=== PATIENT | male | born 1995 | race Caucasian/White ===

== ENCOUNTER 2019-06-26 16:46 | Emergency (ER) | payer OTHER, SELFPAY ==
[2019-06-26 16:50] VITALS: BP 134/76; PULSE 82; RESP 15; TEMP 36.8; O2SAT 97; BMI 30.5
--- NOTE | 2019-06-26 17:32 | ED_ITS ---
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 Has a history of PTSD. Is currently on sertraline for is anxiety. Here for evaluation of an anxiety attack He states that he is taking his medications. He does not know what caused his issues today. He is on light duty at work given the medications he is taking. He also has insomnia. Has a follow-up with the medical assistant tomorrow. [place] follow-up in 2 weeks. Related Data Home Medications Medication Instructions Recorded Confirmed baclofen 10 mg PO TID 06/26/19 diazepam 06/26/19 sertraline 200 mg PO DAILY 06/26/19 Previous Rx's Medication Instructions Recorded lorazepam [Ativan] 1 mg PO TID PRN #7 tab 06/26/19 Allergies Allergy/AdvReac Type Severity Reaction Status Date / Time No Known Drug Allergies Allergy Verified 06/26/19 16:49 Review of Systems Constitutional Constitutional: Denies headache(s) ENT Ears, Nose, Mouth, and Throat: Denies headache(s) Cardiovascular Cardiovascular: Denies chest pain and Denies dyspnea Respiratory Respiratory: Denies dyspnea Musculoskeletal Musculoskeletal: Denies myalgias and Denies arthralgias Integumentary/Breasts Skin/Breast: Denies rash Neurologic Neurologic: Denies headache(s) Hematologic/Lymphatic Hematologic/Lymphatic: Denies easy bleeding and Denies easy bruising Patient History Medical History Anxiety (Acute) Depression (Acute) Insomnia (Acute) Low back pain (Acute) PTSD (post-traumatic stress disorder) (Acute) Social History Smoking Status: Unknown if ever smoked Smoking Status: Unknown if ever smoked alcohol intake frequency: holidays/special occasions only Substance Use Type: does not use Exam Initial Vital Signs Initial Vital Signs: Vital Signs Temperature 98.2 F 06/26/19 16:50 Pulse Rate 82 06/26/19 16:50 Respiratory Rate 15 06/26/19 16:50 Blood Pressure 134/76 06/26/19 16:50 Pulse Oximetry 97 02/11/20 16:50 Const General: cooperative and comfortable Limitations: mental status not altered Resp Effort & Inspection: normal respiratory effort Cardio Rate: regular rate Skin Lesions: no lesions Rashes: no rashes Neuro General: alert and awake Cognition: normal cognition Speech: speech normal Extrem General: normal to inspection and capillary refill normal Psych Appearance: grossly normal, well kempt and not disheveled Mood: congruent mood Thought Process: normal Thought Content: normal and suicidality Course Orders Ordered: Discontinued Medications Lorazepam (Ativan) 1 mg PO NOW ONE Stop: 06/26/19 17:33 Vital Signs Vital signs: Vital Signs - 8 hr 06/26/19 16:50 Temperature 98.2 F Pulse Rate 82 Respiratory Rate 15 Blood Pressure 134/76 Pulse Oximetry 97 MDM - Anxiety MDM Narrative Medical decision making narrative: Alert oriented x3. No SI or HI. GCS 15. In my opinion as capacity make decisions. Has a follow-up with his medical department tomorrow. No indication for acute admission. He was given return precautions. Expressed understanding and agreement plan. Discharge Plan Departure Patient Disposition: Home Clinical Impression: Acute anxiety Instructions: Anxiety Disorders Activity Restrictions/Additional Instructions: Take all of your medications as directed. Keep all of your scheduled medical appointments return to the emergency department for any new or worsening symptoms Prescriptions: New lorazepam [Ativan] 1 mg tablet 1 mg PO TID PRN (Reason: anxiety) Qty: 7 RF: 0 No Action sertraline 100 mg tablet 200 mg PO DAILY RF: 0 baclofen 10 mg tablet 10 mg PO TID RF: 0 diazepam 5 mg tablet RF: 0 Stand Alone Forms: Work Release Note
[2019-06-26] MEDS: LORazepam 0.5 MG TABLET 1 MG PO (17:40)
[2019-06-26 18:11] VITALS: BP 138/73; PULSE 72; O2SAT 99
== END 2019-06-26 18:12 | disposition home or self-care (01) ==
PROVIDERS: Emergency Provider Emergency Medicine
DX: F41.9 Anxiety disorder, unspecified (principal)
CPT/HCPCS: 99283

== ENCOUNTER → 2019-09-14 13:11 | Outpatient (CLI) | payer OTHER, SELFPAY ==
[2019-09-15 04:19] LABS: COVID19 Sendout Not Detected (Not Detect)
== END ==
PROVIDERS: Visit Provider Physician Assistant
DX: Z11.59 Encounter for screening for other viral diseases (principal)
CPT/HCPCS: 87635

== ENCOUNTER 2019-10-08 23:16 | Emergency (ER) | payer OTHER, SELFPAY ==
[2019-10-08 23:56] VITALS: PULSE 72; RESP 18; TEMP 36.9; O2SAT 97; BMI 31.3
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
[2019-10-09 00:55] VITALS: BP 120/65; PULSE 70; RESP 18; TEMP 36.6; O2SAT 96
--- NOTE | 2019-10-09 01:00 | ED.BACK ---
HPI - Back Pain/Injury General Chief Complaint: Back Pain/Injury Stated Complaint: back pain/spasms right leg goes numb Time Seen by Provider: 10/09/19 00:26 Source: patient History of Present Illness HPI Narrative: 24-year-old gentleman with a history of recurrent low back pain and back muscle spasm with increasing pain over the last 24 hours. He recently had his medication changed from Valium to Flexeril to baclofen and he is finding the baclofen is not very effective in controlling his overall muscle spasm. He has a child at home and is been bending and lifting a bit more. Over the last 24 hours pain has gotten significantly worse and now has a radicular component down the right leg. He has no changes to bowel or bladder and no numbness to the perineum. He is not having difficulty walking. Related Data Home Medications Medication Instructions Recorded Confirmed baclofen 10 mg PO TID 06/26/19 diazepam 06/26/19 sertraline 200 mg PO DAILY 06/26/19 Previous Rx's Medication Instructions Recorded lorazepam [Ativan] 1 mg PO TID PRN #7 tab 06/26/19 dexamethasone [Decadron] 10 mg PO DAILY #5 tab 10/09/19 Allergies Allergy/AdvReac Type Severity Reaction Status Date / Time No Known Drug Allergies Allergy Verified 06/26/19 16:49 Review of Systems Review of Systems Narrative: Pertinent positive and negative findings as per HPI Remainder of review of systems is otherwise unremarkable for Constitutional: Fevers, chills, weakness ENT: No sore throat, neck pain, ear pain CV: Chest pain, palpitations, dyspnea on exertion Respiratory: Cough, wheeze, dyspnea GI: Nausea, vomiting, diarrhea, change in bowel habits, black or bloody stools : Dysuria, hematuria, flank pain Patient History Medical History Anxiety (Acute) Depression (Acute) Insomnia (Acute) Low back pain (Acute) PTSD (post-traumatic stress disorder) (Acute) Social History Smoking Status: Never smoker Smoking Status: Never smoker alcohol intake frequency: 0-2 drinks per day Substance Use Type: does not use Exam Narrative Exam Narrative: General: Alert appropriate in no acute distress Respiratory: Able to speak in full sentences, no obvious respiratory distress Skin: No obvious rashes, warm and dry Neurologic: Grossly intact no obvious asymmetries or abnormalities. 2+ patellar reflexes and ankle jerks bilaterally. No difficulty with straight leg raising on the right side(side of discomfort). Back: Significant paraspinous muscle spasm in the right L3-L4 area without rashes or point tenderness over transverse processes Psych, appropriate insight and affect, cooperative Initial Vital Signs Initial Vital Signs: Vital Signs Temperature 98.4 F 10/08/19 23:56 Pulse Rate 72 10/08/19 23:56 Respiratory Rate 18 10/08/19 23:56 Pulse Oximetry 97 10/08/19 23:56 Course Orders Ordered: Discontinued Medications Dexamethasone (Decadron) 10 mg PO NOW ONE Stop: 10/09/19 01:12 Last Admin: 10/09/19 01:23 Dose: 10 mg Documented by: OLIVER Ketorolac Tromethamine (Toradol) 30 mg IM NOW ONE Stop: 10/09/19 01:12 Last Admin: 10/09/19 01:25 Dose: 30 mg Documented by: OLIVER Oxycodone/Acetaminophen (Percocet 5/325) 1 tab PO NOW ONE Stop: 10/09/19 01:12 Last Admin: 10/09/19 01:24 Dose: 1 tab Documented by: OLIVER Oxycodone/Acetaminophen (Endocet 5/325 Prepack) 1 bottle MISC SEEINSTR ONE Stop: 10/09/19 01:12 Last Admin: 10/09/19 01:25 Dose: 1 bottle Documented by: OLIVER Vital Signs Vital signs: Vital Signs - 8 hr 10/08/19 23:56 10/09/19 00:55 Temperature 98.4 F 97.9 F Pulse Rate 72 70 Respiratory Rate 18 18 Blood Pressure [Left Arm] 120/65 Pulse Oximetry 97 96 [facility] - Back Pain/Injury Medical Records Attestation: I reviewed the patient's medical records. [facility] Narrative Medical decision making narrative: Acute exacerbation of chronic back pain with no radicular symptoms in the last 24 hours. No red flags for infection, abscess, cauda equina syndrome. Imaging is not felt to be necessary nor appropriate at this time. Pain is relieved with Toradol IM and a single Percocet. He is placed on Decadron for 3 days and instructed follow-up with his primary care physician. He is felt to be safe for home discharge at this time Discharge Plan Departure Patient Disposition: Home Clinical Impression: Strain of lumbar region Qualifiers: Encounter type: initial encounter Qualified Code(s): S39.012A - Strain of muscle, fascia and tendon of lower back, initial encounter Sciatica Qualifiers: Laterality: right Qualified Code(s): M54.31 - Sciatica, right side Discharge Date/Time: 10/09/19 01:47 Instructions: DI for Back Pain With Sciatica Activity Restrictions/Additional Instructions: Thank you for coming in today I am sorry you are having so much discomfort. In the emergency room, you are given a shot of Toradol to help with the acute pain. You were also given the your 1st dose of Decadron, a steroid to help reduce swelling and hopefully the radicular symptoms down the right leg. I have given you a prescription for 2 more days of Decadron. Using 400 mg of ibuprofen (2 [id number] pills) and 1 Tylenol every 6 hours can be very helpful in controlling pain. For severe pain you can try to ibuprofen with a single Percocet to help control the pain. Please follow-up with your primary care physician and continue working on getting in to pain management to help with the current pain in her back and down your leg. I hope you feel better quickly Prescriptions: New dexamethasone [Decadron] 4 mg tablet 10 mg PO DAILY Qty: 5 RF: 0 No Action sertraline 100 mg tablet 200 mg PO DAILY RF: 0 baclofen 10 mg tablet 10 mg PO TID RF: 0 diazepam 5 mg tablet RF: 0 lorazepam [Ativan] 1 mg tablet 1 mg PO TID PRN (Reason: anxiety) Qty: 7 RF: 0 Stand Alone Forms: Work Release Note
[2019-10-09] MEDS: dexAMETHasone 4 MG TABLET 10 MG PO (01:23)
[2019-10-09] MEDS: OXYCODONE/ACETAMINOPHEN 5/325 TABLET 1 TAB PO (01:24)
[2019-10-09] MEDS: KETOROLAC 60 MG/2 ML VIAL 30 MG IM (01:25)
[2019-10-09] MEDS: OXYCODONE/APAP 5/325 PREPACK 1 BOTTLE MISC (01:25)
== END 2019-10-09 01:47 | disposition home or self-care (01) ==
PROVIDERS: Emergency Provider Emergency Medicine
DX: S39.012A Strain of muscle, fascia and tendon of lower back, initial encounter (principal); M54.41 Lumbago with sciatica, right side; X50.9XXA Other and unspecified overexertion or strenuous movements or postures, initial encounter
CPT/HCPCS: 96372; 99283; J1885

== ENCOUNTER → 2019-11-21 07:36 | Outpatient (CLI) | payer OTHER, SELFPAY ==
--- NOTE | 2019-11-21 | DI.MRI.S_ITS ---
PROCEDURE: MR LUMBAR SPINE WO CON INDICATIONS: Anesthesia of skin TECHNIQUE: Noncontrast sagittal T1 spin echo and T2 fast echo, sagittal STIR, axial T1 and T2 fast spin echo through the lumbar spine. In cases with scoliosis, additional coronal T2 fast spin echo may be performed. COMPARISON: None. FINDINGS: Image quality: Excellent. Alignment and Curvature: There is normal bony alignment. Bone Marrow: Marrow is of normal overall signal. No acute vertebral body compression fractures. Spinal Cord: Normal position and appearance of the conus. Visualized cord demonstrates normal signal and size. Paraspinous Soft Tissues: No paravertebral masses. L1-L2: Normal appearance. L2-L3: Normal appearance. L3-L4: Normal appearance. L4-L5: Normal appearance. L5-S1: Normal appearance. IMPRESSION: No acute finding or significant degenerative changes. No spinal canal stenosis, neural foraminal stenosis, or focal nerve root impingement. Dictated by: Joseph Jarrett M.D. on 11/21/2019 at 8:33 Approved by: Joseph Jarrett M.D. on 11/21/2019 at 8:34
== END ==
PROVIDERS: Referring Provider Orthopaedic Surgery Orthopaedic Surgery of the Spine; Visit Provider Orthopaedic Surgery Orthopaedic Surgery of the Spine
DX: R20.0 Anesthesia of skin (principal); M62.838 Other muscle spasm; M54.9 Dorsalgia, unspecified
CPT/HCPCS: 72148

== ENCOUNTER 2019-12-10 19:45 | Emergency (ER) | payer OTHER, SELFPAY ==
[2019-12-10 19:51] VITALS: BP 140/79; PULSE 77; RESP 14; TEMP 36.9; O2SAT 99
[2019-12-10 20:35] LABS: Add Manual Diff / Slide Review NO; Basophils Absolute Auto 100 /uL (0-100); Basophils Percent Auto 0.7 % (0-2); Eosinophils Absolute Auto 200 /uL (0-450); Eosinophils Percent Auto 3.1 % (2-4); Hematocrit 41.8 % (41-53); Lymphocytes Absolute Auto 1900 /uL (1100-4500); Mean Corpuscular HGB Conc 33.6 % (30-36); Mean Corpuscular Hemoglobin 29.6 PG (26-34); Mean Corpuscular Volume 88.2 fL (80-100); Monocytes Absolute Auto 800 /uL (0-900); Monocytes Percent Auto 10.1 % (3-14); Neutrophils Absolute Auto 4800 /uL (1500-7000); Neutrophils Percent Auto 61.1 % (50-75); Platelet Count 298 X10^3/uL (150-400); Red Blood Cell Count 4.74 X10^6/uL (4.5-5.9); Red Cell Distribution Width 13.9 % (11.6-14.8); White Blood Cell Count 7.8 X10^3/uL (4.5-11.0)
[2019-12-10 20:50] LABS: Lactate (Lactic Acid) 0.7 mmol/L (0.7-2.1)
[2019-12-10] MEDS: CYCLOBENZAPRINE 10 MG TABLET PO (20:51)
[2019-12-10] MEDS: KETOROLAC 60 MG/2 ML VIAL 30 MG IM (20:51)
[2019-12-10] MEDS: ACETAMINOPHEN 325 MG TABLET 650 MG PO (20:51)
[2019-12-10 20:53] LABS: BUN Creatinine Ratio 14.8 (6-22); Blood Urea Nitrogen 16 mg/dL (9-20); C-Reactive Protein Quant 1.2 mg/dL (<1.0); Calcium 9.5 mg/dL (8.4-10.2); Carbon Dioxide 30 mmol/L (22-32); Chloride 103 mmol/L (98-107); Estimated Glomerular Filt Rate > 60.0 mL/min (>60); Glucose 93 mg/dL (70-100); HEMOLYSIS < 15 (0-50); Potassium 4.3 mmol/L (3.4-5.1); Sodium 137 mmol/L (137-145)
[2019-12-10] MEDS: LIDOCAINE PATCH 1 EACH ADH..PATCH 2 EACH TOP (20:53)
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
[2019-12-10 21:11] LABS: Erythrocyte Sedimentation Rate 11 MM/HR (0-15)
[2019-12-10 21:22] VITALS: BP 136/76; PULSE 85; RESP 18; O2SAT 96
== END 2019-12-10 21:28 | disposition home or self-care (01) ==
PROVIDERS: Emergency Provider Nurse Practitioner Family; PCP Student in an Organized Health Care Education/Training Program
DX: M54.31 Sciatica, right side (principal); M62.830 Muscle spasm of back
CPT/HCPCS: 36415; 80048; 83605; 85025; 85651; 86140; 96372; 99283; J1885

== ENCOUNTER → 2020-02-01 13:50 | Outpatient (CLI) | payer OTHER, SELFPAY ==
--- NOTE | 2020-02-01 | DI.MRI.S_ITS ---
PROCEDURE: MR LUMBAR SPINE WO CON INDICATIONS: Dorsalgia, unspecified TECHNIQUE: Noncontrast sagittal T1 spin echo and T2 fast echo, sagittal STIR, axial T1 and T2 fast spin echo through the lumbar spine. In cases with scoliosis, additional coronal T2 fast spin echo may be performed. COMPARISON: [facility], MR, MR CERVICAL SPINE WO CON, 02/01/2020, 14:04. [facility], MR, MR THORACIC SPINE WITHOUT CONTRAST, 10/18/2019, 13:52. [facility], MR, MR LUMBAR SPINE WO CON, 11/21/2019, 7:58. FINDINGS: Image quality: Excellent. Alignment and Curvature: There is normal bony alignment. Bone Marrow: Marrow is of normal overall signal. No acute vertebral body compression fractures. Spinal Cord: Conus medullaris terminates at the L1 level. Visualized cord demonstrates normal signal and size. Paraspinous Soft Tissues: No paravertebral masses. T12-L1: Normal appearance. L1-L2: Normal appearance. L2-L3: Normal appearance. L3-L4: No significant abnormality is seen. L4-L5: Level within normal limits. L5-S1: Normal appearance. IMPRESSION: No significant lumbar spine MRI abnormality can be seen. Stable from prior. Dictated by: Matt López M.D. on 02/01/2020 at 13:57 Approved by: Matt López M.D. on 02/01/2020 at 13:59
--- NOTE | 2020-02-01 | DI.MRI.S_ITS ---
PROCEDURE: MR CERVICAL SPINE WO CON INDICATIONS: Dorsalgia, unspecified TECHNIQUE: Noncontrast sagittal T1 spin echo and T2 fast spin echo, sagittal STIR, foraminal oblique sagittal T2 fast spin echo, and axial gradient echo or T2 fast spin echo through the cervical spine. COMPARISON: [facility], MR, MR THORACIC SPINE WITHOUT CONTRAST, 10/18/2019, 13:52. [facility], MR, MR LUMBAR SPINE WO CON, 02/01/2020, 14:19. [facility], MR, MR LUMBAR SPINE WO CON, 11/21/2019, 7:58. FINDINGS: Image quality: Diagnostic, with note made of motion artifact. Alignment and Curvature: There is normal bony alignment. Bone Marrow: Marrow demonstrates normal overall signal. Spinal Cord: Visualized spinal cord has normal size and signal. No cerebellar tonsillar herniation. Paraspinous Soft Tissues: No paravertebral masses. Prevertebral soft tissues are normal in thickness. C2-C3: No significant abnormality is seen. C3-C4: The disc height and disc signal are relatively well preserved. Minimal to mild disc osteophyte complex is seen. Mild to moderate facet hypertrophy is seen. No significant neural foraminal or central canal narrowing can be seen. C4-C5: The disc height and disc signal are relatively well preserved. Moderate generalized disc osteophyte complex is seen. There is moderate right-sided and mild left-sided facet hypertrophy seen. There is moderate bilateral neural foraminal narrowing seen. Minimal to mild central canal narrowing is seen. C5-C6: The disc height and disc signal are relatively well preserved. Moderate disc osteophyte complex is seen, which is eccentric to the left. There is a mild left lateral recess/left foraminal disc osteophyte protrusion seen. There is at least moderate left-sided and dddd-xo-petgdcsk right-sided neural foraminal narrowing seen. No significant central canal narrowing is seen. C6-C7: The disc height and disc signal are relatively well preserved. Mild to moderate disc osteophyte complex is seen, which is eccentric to the left. There is ipzs-yl-stmvuuax left-sided and mild right-sided neural foraminal narrowing seen. Minimal central canal narrowing is seen. C7-T1: Mild loss of disc height is seen. Loss of disc signal is seen. A mild degree of generalized disc osteophyte complex is seen. Moderate facet joint hypertrophy is seen. There is urkz-br-gbmpmnyo left-sided and minimal right-sided neural foraminal narrowing seen. The central canal is widely patent. IMPRESSION: Multiple levels of premature cervical spine degenerative change are seen, which are most prominent at C4-C5 and C5-C6. Dictated by: Matt López M.D. on 02/01/2020 at 13:50 Approved by: Matt López M.D. on 02/01/2020 at 13:55
== END ==
PROVIDERS: PCP Student in an Organized Health Care Education/Training Program; Referring Provider Student in an Organized Health Care Education/Training Program; Visit Provider Student in an Organized Health Care Education/Training Program
DX: M54.9 Dorsalgia, unspecified (principal); M47.812 Spondylosis without myelopathy or radiculopathy, cervical region
CPT/HCPCS: 72141; 72148

== ENCOUNTER → 2020-05-02 10:41 | Outpatient (CLI) | payer OTHER, SELFPAY ==
--- NOTE | 2020-05-02 | DI.RAD.S_ITS ---
PROCEDURE: XR THORACIC SPINE 2V INDICATIONS: Z00.00 TECHNIQUE: 3 views of the thoracic spine were acquired. COMPARISON: None. FINDINGS: Bones: No fractures or dislocations. No suspicious bony lesions. Twelve pairs of ribs are noted, and appear intact where visualized. Soft tissues: No paravertebral stripe thickening. IMPRESSION: Normal alignment, no trauma found. Dictated by: Luca Soliz M.D. on 05/02/2020 at 13:21 Approved by: Luca Soliz M.D. on 05/02/2020 at 13:22
--- NOTE | 2020-05-02 | DI.RAD.S_ITS ---
PROCEDURE: XR CHEST 2V INDICATIONS: Z00.00 TECHNIQUE: 2 views of the chest were acquired. COMPARISON: None. FINDINGS: Surgical changes and devices: None. Lungs and pleura: Lungs are clear. No pleural effusions or pneumothorax. Mediastinum: Mediastinal contours are normal. Heart size is normal. Bones and chest wall: No suspicious bony abnormalities. Soft tissues appear unremarkable. IMPRESSION: Normal for age. Dictated by: Luca Soliz M.D. on 05/02/2020 at 13:18 Approved by: Luca Soliz M.D. on 05/02/2020 at 13:19
--- NOTE | 2020-05-02 | DI.RAD.S_ITS ---
PROCEDURE: XR HAND LT MIN 3V INDICATIONS: z00.00 TECHNIQUE: 3 views of the hand(s) acquired. COMPARISON: None. FINDINGS: Bones: No fractures or dislocations. Carpal bones are normally aligned. No suspicious bony lesions. Soft tissues: No suspicious soft tissue calcifications. IMPRESSION: Normal for age, no trauma found. Dictated by: Luca Soliz M.D. on 05/02/2020 at 13:19 Approved by: Luca Soliz M.D. on 05/02/2020 at 13:21
--- NOTE | 2020-05-02 | DI.RAD.S_ITS ---
PROCEDURE: XR LUMBAR SPINE 2-3V INDICATIONS: z00.00 TECHNIQUE: 3 views of the lumbar spine were acquired. COMPARISON: None. FINDINGS: Bones: 5 hfr-cqf-cofbvwl vertebrae are present. There is normal bony alignment. No vertebral body compression fractures. No suspicious bony lesions. Soft tissues: Overlying bowel gas pattern is normal. No suspicious soft tissue calcifications. IMPRESSION: Normal for age, no significant degenerative disc disease or facet osteoarthritis is seen. No compression fracture found. Dictated by: Luca Soliz M.D. on 05/02/2020 at 13:21 Approved by: Luca Soliz M.D. on 05/02/2020 at 13:21
== END ==
PROVIDERS: PCP Student in an Organized Health Care Education/Training Program; Referring Provider Family Medicine; Visit Provider Family Medicine
DX: Z00.00 Encounter for general adult medical examination without abnormal findings (principal)
CPT/HCPCS: 71046; 72070; 72100; 73130

== ENCOUNTER 2020-06-18 10:10 | Emergency (ER) | payer OTHER, SELFPAY ==
[2020-06-18 10:16] VITALS: BP 139/73; PULSE 86; RESP 16; TEMP 36.1; O2SAT 98; BMI 31.3
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
[2020-06-18] MEDS: KETOROLAC 60 MG/2 ML VIAL 30 MG IM (10:41)
[2020-06-18] MEDS: LIDOCAINE PATCH 1 EACH ADH..PATCH TOP (10:41)
[2020-06-18] MEDS: CYCLOBENZAPRINE 10 MG TABLET PO (10:41)
[2020-06-18] MEDS: CODEINE/ACETAMINOPHEN 30/300 TABLET 1 TAB PO (11:48)
[2020-06-18] MEDS: predniSONE 20 MG TABLET 40 MG PO (11:48)
[2020-06-18 12:57] VITALS: BP 130/60; PULSE 79; RESP 18; O2SAT 100
== END 2020-06-18 13:09 | disposition home or self-care (01) ==
PROVIDERS: Emergency Provider Nurse Practitioner Family; PCP Student in an Organized Health Care Education/Training Program
DX: M54.5 Low back pain (principal); M54.6 Pain in thoracic spine
CPT/HCPCS: 96372; 99281; 99283; J1885

== ENCOUNTER 2021-04-08 15:40 | Emergency (ER) | payer OTHER, SELFPAY ==
[2021-04-08 16:15] VITALS: BP 122/82; PULSE 101; RESP 18; TEMP 36.1; O2SAT 99; BMI 31.6
[2021-04-08 17:25] LABS: Add Manual Diff / Slide Review NO; Basophils Absolute Auto 0 /uL (0-100); Basophils Percent Auto 0.4 % (0-2); Eosinophils Absolute Auto 100 /uL (0-450); Eosinophils Percent Auto 1.2 % (2-4); Hematocrit 45.1 % (41-53); Lymphocytes Absolute Auto 900 /uL (1100-4500); Lymphocytes Percent Auto 13.6 % (25-40); Mean Corpuscular HGB Conc 33.4 % (30-36); Mean Corpuscular Hemoglobin 29.5 PG (26-34); Mean Corpuscular Volume 88.3 fL (80-100); Monocytes Absolute Auto 800 /uL (0-900); Monocytes Percent Auto 12.4 % (3-14); Neutrophils Absolute Auto 4800 /uL (1500-7000); Neutrophils Percent Auto 72.4 % (50-75); Platelet Count 254 X10^3/uL (150-400); Red Cell Distribution Width 13.9 % (11.6-14.8); White Blood Cell Count 6.6 X10^3/uL (4.5-11.0)
[2021-04-08 18:22] LABS: Alanine Aminotransferase 92 IU/L (<50); Albumin 4.7 g/dL (3.5-5.0); Albumin Globulin Ratio 1.6 (1.0-2.8); Alkaline Phosphatase 79 U/L (38-126); Aspartate Aminotransferase 48 IU/L (17-59); BUN Creatinine Ratio 14.9 (6-22); Bilirubin Total 0.4 mg/dL (0.2-1.3); Blood Urea Nitrogen 14 mg/dL (9-20); Carbon Dioxide 28 mmol/L (22-32); Chloride 99 mmol/L (98-107); Estimated Glomerular Filt Rate > 60.0 mL/min (>60); Glucose 93 mg/dL (70-100); HEMOLYSIS 19 (0-50); Lipase 55 U/L (23-300); Potassium 4.5 mmol/L (3.4-5.1); Sodium 138 mmol/L (137-145); Total Protein 7.7 g/dL (6.3-8.2)
--- NOTE | 2021-04-08 19:12 | ED_ITS ---
HPI - Abdominal Pain <Addison Styles PA-C - Last Filed: 04/08/21 20:03> General Chief Complaint: Abdominal Pain Stated Complaint: gastro pains Time Seen by Provider: 04/08/21 18:48 Source: patient Mode of arrival: Ambulatory Limitations: no limitations History of Present Illness HPI narrative: Patient is a 26-year-old male presenting to the emergency department today for evaluation of abdominal pain began this morning. Patient states that his at home has experienced diarrhea for the past 2 days, and he notes that he began to experience diarrhea today as well. He notes that 2 days ago he experienced alternating sensations of the cotton cold. Of note, patient states that he e xperienced an episode of spontaneous diarrhea today with associated nausea and decreased appetite. Patient denies fever, chest pain, shortness of breath, cough, vomiting, dysuria, hematuria, hematochezia. Of note, patient states that he has been experiencing ?abnormal stools for approximately 1 month. No other concerns voiced at this time. Patient reports 1 episode of diarrhea today he explains that he took a dose of loperamide and has not experienced further episodes of diarrhea. Related Data Home Medications Medication Instructions Recorded Confirmed sertraline 100 mg tablet 200 mg PO DAILY 06/26/19 duloxetine 60 mg capsule,delayed mg PO 12/10/19 release gabapentin 300 mg capsule 600 mg 12/10/19 omeprazole 20 mg capsule,delayed 12/10/19 release Previous Rx's Medication Instructions Recorded cyclobenzaprine 10 mg tablet 10 mg PO BEDTIME PRN #7 tab 12/10/19 lidocaine 5 % topical patch 1 patch TOP DAILY PRN #30 each 12/10/19 acetaminophen 300 mg-codeine 30 mg 1 tab PO Q6H PRN #10 tab 06/18/20 tablet cyclobenzaprine 10 mg tablet 10 mg PO TID PRN #20 tab 06/18/20 ketorolac 10 mg tablet 10 mg PO TID PRN #15 tab 06/18/20 loperamide 2 mg tablet 2 mg PO QID PRN #30 tab 04/08/21 loperamide 2 mg tablet 2 mg PO QID PRN #30 tab 04/08/21 Allergies Allergy/AdvReac Type Severity Reaction Status Date / Time No Known Drug Allergies Allergy Verified 06/26/19 16:49 Review of Systems <Addison Styles PA-C - Last Filed: 04/08/21 20:03> Constitutional Constitutional: Denies chills, Denies fatigue, Denies fever(s), Denies frequent falls, Denies lethargy and Denies weakness ENT Ears, Nose, Mouth, and Throat: Denies change in voice, Denies dizziness, Denies neck pain, Denies sore throat and Denies throat swelling Cardiovascular Cardiovascular: Denies chest pain, Denies irregular heart rhythm, Denies lightheadedness, Denies palpitations, Denies dyspnea, Denies dyspnea on exertion and Denies orthopnea Respiratory Respiratory: Denies cough, Denies dyspnea, Denies dyspnea on exertion and Denies wheezing Gastrointestinal Gastrointestinal: Reports abdominal pain, Denies hematochezia, Reports change in bowel habits, Denies coffee ground emesis, Reports diarrhea, Reports nausea, Denies vomiting and Denies hematemesis Musculoskeletal Musculoskeletal: Denies neck pain Neurologic Neurologic: Denies dizziness, Denies frequent falls and Denies weakness Endocrine Endocrine: Denies fatigue and Denies palpitations Allergic/Immunologic Allergic/Immunologic: Denies urticaria, Denies throat swelling and Denies wheezing Patient History <Addison Styles PA-C - Last Filed: 04/08/21 20:03> Medical History (Updated 04/08/21 @ 19:29 by Addison Styles PA-C) Anxiety Depression Insomnia Low back pain PTSD (post-traumatic stress disorder) Social History Smoking Status: Never smoker Smoking Status: Never smoker alcohol intake frequency: 0-2 drinks per day Substance Use Type: does not use Exam <Addison Styles PA-C - Last Filed: 04/08/21 20:03> Narrative Exam Narrative: GENERAL: 26 year old patient appears stated age. Well-developed patient, in no acute distress. HEAD: Atraumatic. Normocephalic. EYES: Pupils equal round and reactive. Extraocular motions intact. No scleral icterus. No injection or drainage. ENT: Nose without bleeding, purulent drainage. Throat without erythema, tonsillar hypertrophy or exudate. Airway patent. NECK: Trachea midline. Non tender CARDIOVASCULAR: Regular rate and rhythm without murmurs, gallops, or rubs. RESPIRATORY: Clear to auscultation. Breath sounds equal bilaterally. No wheezes, rales, or rhonchi. GASTROINTESTINAL: Abdomen soft, nondistended. Tenderness to palpation a ppreciated throughout all quadrants of the abdomen, no masses appreciated. Negative McBurney's point. Negative psoas sign. EXTREMITIES: No edema or joint tenderness. BACK: Nontender without deformity or crepitance. No flank tenderness. NEURO: AOx3. SKIN: No rash or erythema of visible areas Initial Vital Signs Initial Vital Signs: Vital Signs Temperature 97.0 F L 04/08/21 16:15 Pulse Rate 101 H 04/08/21 16:15 Respiratory Rate 18 04/08/21 16:15 Blood Pressure 122/82 04/08/21 16:15 Pulse Oximetry 99 04/08/21 16:15 <DO Elijah Kramer Last Filed: 04/09/21 01:05> Initial Vital Signs Initial Vital Signs: Vital Signs Temperature 97.0 F L 04/08/21 16:15 Pulse Rate 101 H 04/08/21 16:15 Respiratory Rate 18 04/08/21 16:15 Blood Pressure 122/82 04/08/21 16:15 Pulse Oximetry 99 04/08/21 16:15 Course <Addison Styles PA-C - Last Filed: 04/08/21 20:03> Course Course Narrative: Lipase, CBC, CMP, EKG, urine dipstick ordered. Orders Ordered: ED Orders 04/08/21 16:56 Complete Blood Count AUTO DIFF Stat Comprehensive Metabolic Panel Stat Lipase Stat Vital Signs Vital signs: Vital Signs - 8 hr 04/08/21 19:36 Pulse Rate 89 Respiratory Rate 16 Blood Pressure 129/75 Pulse Oximetry 99 <DO Elijah Kramer Last Filed: 04/09/21 01:05> Orders Ordered: ED Orders 04/08/21 16:56 Complete Blood Count AUTO DIFF Stat Comprehensive Metabolic Panel Stat Lipase Stat Vital Signs Vital signs: Vital Signs - 8 hr 04/08/21 19:36 Pulse Rate 89 Respiratory Rate 16 Blood Pressure 129/75 Pulse Oximetry 99 MDM - Abdominal Pain <YOALNDA Montiel Last Filed: 04/08/21 20:03> Lab Data Result diagrams: 04/08/21 16:56 04/08/21 16:56 Labs: Lab Results 04/08/21 04/08/21 Range/Units 16:56 16:56 WBC 6.6 (4.5-11.0) X10^3/uL RBC 5.10 (4.5-5.9) X10^6/uL Hgb 15.0 (13.5-17.5) g/dL Hct 45.1 (41-53) % MCV 88.3 (80-100) fL MCH 29.5 (26-34) PG MCHC 33.4 (30-36) % RDW 13.9 (11.6-14.8) % Plt Count 254 (150-400) X10^3/uL Neut % (Auto) 72.4 (50-75) % Lymph % (Auto) 13.6 L (25-40) % [place] % (Auto) 12.4 (3-14) % Eos % (Auto) 1.2 L (2-4) % Baso % (Auto) 0.4 (0-2) % Neut # (Auto) 4800 (6718-2584) /uL Lymph # (Auto) 900 L (5135-7979) /uL [place] # (Auto) 800 (0-900) /uL Eos # (Auto) 100 (0-450) /uL Baso # (Auto) 0 (0-100) /uL Sodium 138 (137-145) mmol/L Potassium 4.5 (3.4-5.1) mmol/L Chloride 99 (98-107) mmol/L Carbon Dioxide 28 (22-32) mmol/L BUN 14 (9-20) mg/dL Creatinine 0.94 (0.66-1.25) mg/dL Estimated GFR > 60.0 (>60) mL/min BUN/Creatinine Ratio 14.9 (6-22) Glucose 93 (70-100) mg/dL Calcium 9.0 (8.4-10.2) mg/dL Total Bilirubin 0.4 (0.2-1.3) mg/dL AST 48 (17-59) IU/L ALT 92 H (<50) IU/L Alkaline Phosphatase 79 (38-126) U/L Total Protein 7.7 (6.3-8.2) g/dL Albumin 4.7 (3.5-5.0) g/dL Globulin 3.0 (1.7-4.1) g/dL Albumin/Globulin Ratio 1.6 (1.0-2.8) Lipase 55 (23-300) U/L MDM Narrative Medical decision making narrative: Patient is a 26-year-old male presenting to the emergency department today for evaluation of abdominal pain began this morning. To consider bacterial diarrhea versus viral diarrhea versus viral gastroenteritis versus appendicitis versus diverticulitis. Overall physical examination and history are reassuring, as patient states that his has experienced similar symptoms as well as his 1-year-old son at home. Additionally, his vital signs have been stable in the emergency department today. Patient states he feels comfortable being discharged home today. Strict return precautions discussed with patient prior to discharge. <Nory Land, DO - Last Filed: 04/09/21 01:05> Lab Data Labs: Lab Results 04/08/21 04/08/21 Range/Units 16:56 16:56 WBC 6.6 (4.5-11.0) X10^3/uL RBC 5.10 (4.5-5.9) X10^6/uL Hgb 15.0 (13.5-17.5) g/dL Hct 45.1 (41-53) % MCV 88.3 (80-100) fL MCH 29.5 (26-34) PG MCHC 33.4 (30-36) % RDW 13.9 (11.6-14.8) % Plt Count 254 (150-400) X10^3/uL Neut % (Auto) 72.4 (50-75) % Lymph % (Auto) 13.6 L (25-40) % [place] % (Auto) 12.4 (3-14) % Eos % (Auto) 1.2 L (2-4) % Baso % (Auto) 0.4 (0-2) % Neut # (Auto) 4800 (1511-9171) /uL Lymph # (Auto) 900 L (1078-5540) /uL [place] # (Auto) 800 (0-900) /uL Eos # (Auto) 100 (0-450) /uL Baso # (Auto) 0 (0-100) /uL Sodium 138 (137-145) mmol/L Potassium 4.5 (3.4-5.1) mmol/L Chloride 99 (98-107) mmol/L Carbon Dioxide 28 (22-32) mmol/L BUN 14 (9-20) mg/dL Creatinine 0.94 (0.66-1.25) mg/dL Estimated GFR > 60.0 (>60) mL/min BUN/Creatinine Ratio 14.9 (6-22) Glucose 93 (70-100) mg/dL Calcium 9.0 (8.4-10.2) mg/dL Total Bilirubin 0.4 (0.2-1.3) mg/dL AST 48 (17-59) IU/L ALT 92 H (<50) IU/L Alkaline Phosphatase 79 (38-126) U/L Total Protein 7.7 (6.3-8.2) g/dL Albumin 4.7 (3.5-5.0) g/dL Globulin 3.0 (1.7-4.1) g/dL Albumin/Globulin Ratio 1.6 (1.0-2.8) Lipase 55 (23-300) U/L Discharge Plan Departure Patient Disposition: Home Clinical Impression: Viral diarrhea Instructions: Diarrhea Activity Restrictions/Additional Instructions: *You have been diagnosed with viral diarrhea *What to do: *Please continue to take your regular medications as directed. [X] New medication prescriptions sent to your pharmacy: Loperamide [ ] New medication written as a paper prescription [ ] No new medications given *Please follow up with your primary care provider in 2-3 days, call for an appointment. Let them know you were seen in the Emergency Department and that we ask that you be seen in follow up. We will electronically transmit a record of today's note if your PCP is in our system *If you do not have a primary care provider please contact the [facility] Resource line at [phone]. They will ask some questions about your medical history and help get you set up with a doctor in the community. *Return to Emergency Department if you should have any new, worsening or concerning symptoms, such as [fever greater than 101 F, shaking chills, worsening pain, persistent vomiting or other bothersome symptoms] Prescriptions: New loperamide 2 mg tablet 2 mg PO QID PRN (Reason: loose stool) Qty: 30 0RF loperamide 2 mg tablet 2 mg PO QID PRN (Reason: loose stool) Qty: 30 0RF No Action sertraline 100 mg tablet 200 mg PO DAILY 0RF cyclobenzaprine 10 mg tablet 10 mg PO TID PRN (Reason: muscle spasm) Qty: 20 0RF ketorolac 10 mg tablet 10 mg PO TID PRN (Reason: pain) Qty: 15 0RF acetaminophen-codeine 300-30 mg tablet 1 tab PO Q6H PRN (Reason: pain) Qty: 10 0RF gabapentin 300 mg capsule 600 mg 0RF duloxetine 60 mg capsule,delayed release(DR/EC) PO 0RF omeprazole 20 mg capsule,delayed release(DR/EC) 0RF cyclobenzaprine 10 mg tablet 10 mg PO BEDTIME PRN (Reason: muscle spasm) Qty: 7 0RF lidocaine 5 % adhesive patch,medicated 1 patch TOP DAILY PRN (Reason: back pain) Qty: 30 0RF Rx Instructions: leave on most painful area for up to 12 hrs Referrals: Corina Donato [Primary Care Provider] - <Nory Land DO - Last Filed: 04/09/21 01:05> Cosign ED Attending Stevan Attestation: I was immediately available in the department for consultation. Documentation has been reviewed. I agree with assessment and plan.
[2021-04-08 19:36] VITALS: BP 129/75; PULSE 89; RESP 16; O2SAT 99
== END 2021-04-08 19:38 | disposition home or self-care (01) ==
PROVIDERS: Emergency Medicine; Emergency Provider Physician Assistant; PCP Student in an Organized Health Care Education/Training Program
DX: A08.4 Viral intestinal infection, unspecified (principal)
CPT/HCPCS: 36415; 80053; 83690; 85025; 99281; 99283

== ENCOUNTER 2021-11-25 17:55 | Emergency (ER) | payer OTHER, SELFPAY ==
[2021-11-25 17:49] VITALS: PULSE 69; O2SAT 96
[2021-11-25 18:01] VITALS: BP 146/91; PULSE 111; RESP 18; TEMP 36.6; O2SAT 100; BMI 29.4
--- NOTE | 2021-11-25 18:08 | ED_ITS ---
HPI - Psych General Chief Complaint: Psychiatric Symptoms Stated Complaint: dalia altamirano Time Seen by Provider: 11/25/21 18:08 Source: patient Mode of arrival: Ambulatory Limitations: no limitations History of Present Illness HPI Narrative: This is a 26-year-old male with history of bipolar 3, PTSD and depression with recent edible marijuana ingestion about an hour prior to arrival. Patient states that he is feeling quite distressed he is having all of his thoughts concurrently at the same time in his brain over the entirety of his life. He denies ingestion of other substances. He is had this happen once before after an edible marijuana but thought he would try it again. He does not use marijuana or any other form. He denies any other illicit drugs. He denies any alcohol or concurrent ETOH today. No tobacco. He is on multiple psychiatric medications and states he has been taking them and that his mood has been stable without issues. Patient denies any other medical issues. He is had a cyst removed from his finger. He is unsure of all of his medications but states he does not take lithium he does take trazodone, sertraline, omeprazole and another medication for anxiety as well as his bipolar. Related Data Home Medications Medication Instructions Recorded Confirmed sertraline 100 mg tablet 200 mg PO DAILY 06/26/19 duloxetine 60 mg capsule,delayed mg PO 12/10/19 release gabapentin 300 mg capsule 600 mg 12/10/19 omeprazole 20 mg capsule,delayed 12/10/19 release Previous Rx's Medication Instructions Recorded cyclobenzaprine 10 mg tablet 10 mg PO BEDTIME PRN muscle spasm 12/10/19 #7 tabs lidocaine 5 % topical patch 1 patch topical DAILY PRN back 12/10/19 pain #30 ea acetaminophen 300 mg-codeine 30 mg 1 tab PO Q6H PRN pain #10 tabs 06/18/20 tablet cyclobenzaprine 10 mg tablet 10 mg PO TID PRN muscle spasm #20 06/18/20 tabs ketorolac 10 mg tablet 10 mg PO TID PRN pain #15 tabs 06/18/20 loperamide 2 mg tablet 2 mg PO QID PRN loose stool #30 04/08/21 tabs loperamide 2 mg tablet 2 mg PO QID PRN loose stool #30 04/08/21 tabs Allergies Allergy/AdvReac Type Severity Reaction Status Date / Time No Known Drug Allergies Allergy Verified 11/25/21 18:07 Review of Systems Review of Systems ROS Unobtainable: All systems reviewed & are unremarkable except as noted in HPI and below Patient History Medical History (Updated 11/25/21 @ 21:10 by Rula Van DO) Anxiety Depression Insomnia Low back pain PTSD (post-traumatic stress disorder) Social History Smoking Status: Never smoker Smoking Status: Never smoker alcohol intake frequency: holidays/special occasions only Substance Use Type: marijuana Exam Narrative Exam Narrative: GENERAL: Alert and oriented x three, male in mild distress. HEENT: Head normocephalic, atraumatic, EOMI, pupils reactive, face symmetric, moist mucous membranes NECK: Supple, full range of motion CARDIOVASCULAR: Regular rate and rhythm without murmurs, rubs or gallops. RESPIRATORY: Breath sounds equal bilaterally, no wheezes rales or rhonchi. ABDOMEN: Soft, nontender. Normoactive bowel sounds all 4 quadrants. No guarding or rebound, rigidity, no mass : No CVA tenderness EXTREMITIES: Normal range of motion, no clubbing or edema. Neurovascularly intact NEUROLOGICAL: Cranial nerves II through XII grossly intact. Moving all extremities SKIN: Warm, dry, no petechiae, no rashes or lesions. PSYCH: No suicidal ideation or intent, no homicidal ideation or intent. No visual or auditory hallucination but states all thoughts are occurring at the same time. Initial Vital Signs Initial Vital Signs: Vital Signs Pulse Rate 69 11/25/21 17:49 Pulse Oximetry 96 11/25/21 17:49 Course Orders Ordered: Discontinued Medications Lorazepam (Lorazepam 0.5 Mg Tablet) 1 mg PO NOW ONE Stop: 11/25/21 18:23 Last Admin: 11/25/21 18:35 Dose: 1 mg Documented By: [facility] Lorazepam (Lorazepam 0.5 Mg Tablet) 1 mg PO NOW ONE Stop: 11/25/21 21:09 Last Admin: 11/25/21 21:17 Dose: 1 mg Documented By: [facility]NG Reevaluation(s) Reevaluation #1: patient feeling improved but still quiet anxious. Time: 19:33 Reevaluation #2: Patient continuing to feel improved he feels like his symptoms are continuing to resolve but have not completely resolved he feels like the loop of thoughts that he was stuck and he is able to extract himself a little bit. He is still a little bit tachycardic but with improvement of his symptoms I feel he is appro priate to discharge home he feels safe to return home all questions answered. Time: 21:10 Vital Signs Vital signs: Vital Signs - 8 hr 11/25/21 21:31 Pulse Rate 117 H Respiratory Rate 18 Blood Pressure 132/78 Pulse Oximetry 97 Oxygen Delivery Method Room Air MDM - Psych Lab Data Labs: Lab Results 11/25/21 Range/Units 18:35 U Opiates 300ng/mL cut Negative (Negative) Ur Oxycodone Screen Negative (Negative) Urine Methadone Screen Negative (Negative) Ur Barbiturates Screen Negative (Negative) U Tricyclic Antidepress Positive H (Negative) Ur Phencyclidine Scrn Negative (Negative) Ur Amphetamines Screen Negative (Negative) U Methamphetamines Scrn Negative (Negative) Ur MDMA Scrn (Ecstasy) Negative (Negative) U Benzodiazepines Scrn Negative (Negative) Urine Cocaine Screen Negative (Negative) U Marijuana (THC) Screen Positive H (Negative) [facility] Narrative Medical decision making narrative: This is a 26-year-old male who comes emergency department emotional distress after taking an edible gummy and having a bad reaction. Patient was given a dose of oral Ativan which he has found helpful. Was given 1 additional dose for home this evening. Patient has had similar response in the past marijuana. Discharge Plan Departure Patient Disposition: Home Clinical Impression: Adverse effect of cannabis, initial encounter Activity Restrictions/Additional Instructions: Please avoid cannabis or at least edible marijuana in the future. You can take 1 additional dose of Ativan overnight if needed. Your symptoms should continue to improve as the marijuana leaves your system. I hope you continue to feel much better throughout the night and this week. Please return if worsening symptoms if you feel unsafe at any time or have any other new or worsening symptoms. Prescriptions: No Action sertraline 100 mg tablet 200 mg PO DAILY cyclobenzaprine 10 mg tablet 10 mg PO TID PRN (Reason: muscle spasm) Qty: 20 0RF ketorolac 10 mg tablet 10 mg PO TID PRN (Reason: pain) Qty: 15 0RF acetaminophen-codeine 300-30 mg tablet 1 tab PO Q6H PRN (Reason: pain) Qty: 10 0RF gabapentin 300 mg capsule 600 mg duloxetine 60 mg capsule,delayed release(DR/EC) PO omeprazole 20 mg capsule,delayed release(DR/EC) cyclobenzaprine 10 mg tablet 10 mg PO BEDTIME PRN (Reason: muscle spasm) Qty: 7 0RF lidocaine 5 % adhesive patch,medicated 1 patch TOP DAILY PRN (Reason: back pain) Qty: 30 0RF Rx Instructions: leave on most painful area for up to 12 hrs loperamide 2 mg tablet 2 mg PO QID PRN (Reason: loose stool) Qty: 30 0RF loperamide 2 mg tablet 2 mg PO QID PRN (Reason: loose stool) Qty: 30 0RF Referrals: Pj Edwards MD [Primary Care Provider] - Visit Report Forms: Patient Portal/API
[2021-11-25] MEDS: LORazepam 0.5 MG TABLET 1 MG PO ×2 (18:35→21:17)
[2021-11-25 18:50] LABS: UR Morphine/Opiate cutoff 300 Negative (Negative); Ur Creatinine Normal (Normal); Ur Specific Gravity Normal (Normal); Urine Amphetamines Negative (Negative); Urine Barbiturates Negative (Negative); Urine Benzodiazepines Negative (Negative); Urine Cocaine Negative (Negative); Urine MDMA Negative (Negative); Urine Methadone Negative (Negative); Urine Methamphetamines Negative (Negative); Urine Oxycodone Negative (Negative); Urine Phencyclidine Negative (Negative); Urine Tetrahydrocannabinol Positive (Negative); Urine Tricyclic Antidepressant Positive (Negative); Urine pH Normal (Normal)
[2021-11-25 20:24] VITALS: PULSE 116; O2SAT 100
[2021-11-25 20:28] VITALS: BP 130/74; PULSE 120; O2SAT 100
--- NOTE | 2021-11-25 20:34 | PC.NURSE ---
Pt reports intermittent visual and auditory hallucinations improving. Pt reports being shaky and hungry. Snack provided. Pt is calm and responds appropriately.
[2021-11-25 21:31] VITALS: BP 132/78; PULSE 117; RESP 18; O2SAT 97
== END 2021-11-25 21:32 | disposition home or self-care (01) ==
PROVIDERS: Emergency Provider Emergency Medicine; PCP Family Medicine
DX: R44.3 Hallucinations, unspecified (principal); T40.715A Adverse effect of cannabis, initial encounter
CPT/HCPCS: 80305; 99283; 99284

== ENCOUNTER 2023-11-25 14:59 | Emergency (ER) | payer OTHER, SELFPAY ==
[2023-11-25 14:59] VITALS: BP 126/74; PULSE 70; RESP 16; TEMP 36.6; O2SAT 99
[2023-11-25 15:59] VITALS: BP 126/74; PULSE 70; RESP 14; TEMP 36.6; O2SAT 99; BMI 30.5
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
[2023-11-25] MEDS: KETOROLAC 30 MG/ML VIAL IM (16:25)
[2023-11-25] MEDS: diazePAM 5 MG TABLET PO (18:12)
[2023-11-25 18:15] VITALS: PULSE 66; O2SAT 98
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
[2023-11-25 18:30] VITALS: PULSE 69; O2SAT 98
[2023-11-25 18:58] VITALS: BP 114/71; PULSE 69; O2SAT 99
== END 2023-11-25 19:21 | disposition home or self-care (01) ==
PROVIDERS: Emergency Provider Emergency Medicine; PCP Family Medicine
DX: M62.830 Muscle spasm of back (principal); M25.531 Pain in right wrist; V89.2XXA Person injured in unspecified motor-vehicle accident, traffic, initial encounter
CPT/HCPCS: 73110; 96372; 99283; 99284; J1885